=== PATIENT | male | born 1955 | race Caucasian/White ===

== ENCOUNTER 2018-01-22 02:00 | Outpatient (CLI) | payer OTHER, SELFPAY ==
[2018-01-22 11:58] LABS: ALT 42 U/L (12-78); AST 19 U/L (15-37); Albumin 3.8 g/dL (3.4-5.0); Alkaline Phosphatase 82 U/L (46-116); Bilirubin, Total 0.6 mg/dL (0.2-1.0); Cholesterol 178 mg/dL (50-200); HDL Cholesterol 43 mg/dL (40-60); LDL CHOLESTEROL 109 mg/dL (<100); Total Protein 6.9 g/dL (6.4-8.2); Triglyceride 135 mg/dL (30-150)
[2018-01-22 12:12] LABS: Amylase 50 U/L (25-115); Bilirubin, Direct 0.11 mg/dL (0.00-0.20); Lipase 304 U/L (73-393)
== END 2018-01-22 02:20 ==
PROVIDERS: PCP Emergency Medicine; Visit Provider Emergency Medicine
DX: K86.1 Other chronic pancreatitis (principal)
CPT/HCPCS: 36415; 80061; 80076; 83690; 83721; 82150

== ENCOUNTER 2018-01-30 12:26 | Outpatient (REF) | payer OTHER, SELFPAY ==
[2018-01-30 15:05] LABS: Bilirubin Negative (Negative); Blood Negative (Negative); Clarity Clear; Glucose Negative (Negative); Ketones Negative (Negative); Leukocyte Esterase Negative (Negative); Nitrite Negative (Negative); Urobilinogen 0.2 EU/dL (Up TO 0.2)
== END 2018-01-30 12:46 ==
LOC: LBN 12:26
PROVIDERS: PCP Emergency Medicine; Visit Provider Emergency Medicine
DX: Z80.52 Family history of malignant neoplasm of bladder (principal)
CPT/HCPCS: 81003

== ENCOUNTER 2018-09-11 01:44 | Outpatient (CLI) | payer MEDICARE, OTHER, SELFPAY ==
[2018-09-11 10:57] LABS: Abs Immature Grans 0.01 k/cumm (0.0-0.09); Absolute Basophil Count 0.02 k/cumm (0.0-0.2); Absolute Eosinophil Count 0.06 k/cumm (0.0-0.7); Absolute Monocyte Count 0.37 k/cumm (0.11-0.7); Absolute Neutrophil Count 2.87 k/cumm (1.2-6.7); Basophils % 0.4; Eosinophils % 1.3; HCT 44.7 % (40.0-50.0); HGB 14.9 g/dL (13.5-17.5); Immature Grans % 0.2; Lymphocytes % 28.1; Mean Corp. HGB Concentration 33.3 g/dL (32.0-36.0); Mean Corpuscular Hemoglobin 29.4 pg (27.0-33.0); Mean Corpuscular Volume 88.3 fL (80-95); Mean Platelet Volume 10.2 fL (8.0-11.0); Platelet Count 211 x1000/uL (130-400); RBC 5.06 m/cumm (4.50-6.00); RBC Distribution Width 13.1 % (11.8-14.1); White Blood Cell Count 4.63 k/cumm (4.4-10.8)
[2018-09-11 11:24] LABS: ALT 28 U/L (12-78); AST 16 U/L (15-37); Albumin 4.2 g/dL (3.4-5.0); Alkaline Phosphatase 74 U/L (46-116); BUN 23 mg/dL (7-18); Bilirubin, Total 0.5 mg/dL (0.2-1.0); C-Reactive Protein 0.09 mg/dL (0.0-0.3); CREATININE 1.07 mg/dL (0.70-1.30); Calcium 9.1 mg/dL (8.5-10.1); Chloride 105 mmol/L (98-107); Glucose 104 mg/dL (70-100); Potassium 5.3 mmol/L (3.5-5.1); Sodium 141 mmol/L (136-145); Total Protein 7.3 g/dL (6.4-8.2)
== END 2018-09-11 02:04 ==
PROVIDERS: PCP Emergency Medicine; Visit Provider Emergency Medicine
DX: R51 Headache (principal)
CPT/HCPCS: 36415; 80053; 85025; 86140

== ENCOUNTER 2018-09-16 00:33 | Outpatient (CLI) | payer MEDICARE, OTHER, SELFPAY ==
--- NOTE | 2018-09-16 13:05 | DI.CT_ITS ---
SYMPTOM/DIAGNOSIS: HEADACHE, R51 NONCONTRAST HEAD CT: There are no prior comparison exams. No intracranial hemorrhage, mass or infarct is seen. The ventricles are normal in size. There is no significant atrophy. The orbits, sinuses and mastoid air cells are unremarkable. IMPRESSION: Negative head CT.
== END 2018-09-16 00:53 ==
PROVIDERS: PCP Emergency Medicine; Visit Provider Emergency Medicine
DX: R51 Headache (principal)
CPT/HCPCS: 70450

== ENCOUNTER 2019-02-05 07:00 | Outpatient (CLI) | payer MEDICARE, OTHER, SELFPAY ==
[2019-02-05 12:36] LABS: Abs Immature Grans 0.03 k/cumm (0.0-0.09); Absolute Basophil Count 0.03 k/cumm (0.0-0.2); Absolute Eosinophil Count 0.08 k/cumm (0.0-0.7); Absolute Lymphocyte Count 1.25 k/cumm (1.2-3.4); Absolute Monocyte Count 0.43 k/cumm (0.11-0.7); Absolute Neutrophil Count 2.25 k/cumm (1.2-6.7); Basophils % 0.7; HCT 44.6 % (40.0-50.0); HGB 14.5 g/dL (13.5-17.5); Immature Grans % 0.7; Lymphocytes % 30.7; Mean Corp. HGB Concentration 32.5 g/dL (32.0-36.0); Mean Corpuscular Hemoglobin 28.9 pg (27.0-33.0); Mean Corpuscular Volume 88.8 fL (80-95); Mean Platelet Volume 9.8 fL (8.0-11.0); Monocytes % 10.6; Neutrophils % 55.3; Platelet Count 221 x1000/uL (130-400); RBC 5.02 m/cumm (4.50-6.00); RBC Distribution Width 13.4 % (11.8-14.1); White Blood Cell Count 4.07 k/cumm (4.4-10.8)
[2019-02-05 13:14] LABS: ALT 27 U/L (16-63); AST 15 U/L (15-37); Albumin 4.2 g/dL (3.4-5.0); Alkaline Phosphatase 77 U/L (46-116); Anion Gap 7.2 mmol/L (3-11); BUN 22 mg/dL (7-18); Bilirubin, Total 0.7 mg/dL (0.2-1.0); CO2 29.8 mmol/L (21.0-32.0); CREATININE 1.12 mg/dL (0.70-1.30); Calcium 9.2 mg/dL (8.5-10.1); Chloride 105 mmol/L (98-107); Glucose 100 mg/dL (70-100); Potassium 4.4 mmol/L (3.5-5.1); Sodium 142 mmol/L (136-145); Total Protein 7.2 g/dL (6.4-8.2); Vitamin B12 594 pg/mL (193-986)
[2019-02-05 13:23] LABS: C-Reactive Protein 0.06 mg/dL (0.0-0.3)
[2019-02-05 13:39] LABS: ESR 4 mm/hr (1-20)
[2019-02-06 08:58] LABS: PSA, Screening 1.5 ng/ml (0-4.5)
== END 2019-02-05 07:20 ==
PROVIDERS: PCP Emergency Medicine; Visit Provider Emergency Medicine
DX: R53.83 Other fatigue (principal); Z12.5 Encounter for screening for malignant neoplasm of prostate; A07.1 Giardiasis [lambliasis]
CPT/HCPCS: 36415; 80053; 84153; 85652; 82607; 85025; 86140

== ENCOUNTER 2019-11-19 00:46 | Outpatient (CLI) | payer MEDICARE, OTHER, SELFPAY ==
--- NOTE | 2019-11-19 10:30 | DI.RAD_ITS ---
EXAM: XR LUMBAR SPINE COMPLETE CLINICAL HISTORY: Low back pain,M54.5 TECHNIQUE: COMPARISON: No exams were available for comparison FINDINGS: Five views were obtained. There is disc space narrowing at the L 3 4 level. Otherwise intervertebra l disc spaces appear fairly well maintained. There is no evidence of spondylolysis or spondylolisthe sis. The SI joints appear intact. There are moderate hypertrophic degenerative changes involving the vertebral endplates of the mid lum bar region, mild hypertrophic degenerative changes of the facet joints of the lower lumbar spine also noted. IMPRESSION: [id number] degenerative changes as described above. No evidence of fracture.
== END 2019-11-19 01:06 ==
PROVIDERS: PCP Emergency Medicine; Visit Provider Emergency Medicine
DX: M54.5 Low back pain (principal); M51.36 Other intervertebral disc degeneration, lumbar region
CPT/HCPCS: 72110

== ENCOUNTER 2021-01-13 02:42 | Outpatient (CLI) | payer MEDICARE, OTHER, SELFPAY ==
[2021-01-13 12:20] LABS: Abs Immature Grans 0.04 10^3/uL (0.0-0.06); Absolute Basophil Count 0.04 10^3/uL (0.0-0.2); Absolute Eosinophil Count 0.07 10^3/uL (0.0-0.7); Absolute Lymphocyte Count 1.57 10^3/uL (1.2-3.4); Absolute Monocyte Count 0.43 10^3/uL (0.1-0.8); Absolute Neutrophil Count 2.22 10^3/uL (1.2-6.7); Basophils % 0.9; Eosinophils % 1.6; HCT 42.7 % (40.0-50.0); HGB 13.7 g/dL (13.5-17.5); Immature Grans % 0.9; Lymphocytes % 35.9; MCH 28.9 pg (27.0-33.0); MCHC 32.1 % (32.0-36.0); MCV 90.1 fL (80-95); MPV 9.6 fL (8.0-11.0); Monocytes % 9.8; Neutrophils % 50.9; Nucleated RBC 0 %; Platelet Count 229 10^3/uL (130-400); RBC 4.74 10^6/uL (4.36-5.78); RDW 12.7 % (11.8-14.1); RDW-SD 42.3 fL; WBC 4.37 10^3/uL (4.4-10.8)
[2021-01-13 12:38] LABS: ALT 38 U/L (16-63); AST 16 U/L (15-37); Albumin 4.2 g/dL (3.4-5.0); Alkaline Phosphatase 68 U/L (46-116); Amylase 54 U/L (25-115); Anion Gap 7.1 mmol/L (3-11); BUN 19 mg/dL (7-18); Bilirubin, Total 0.9 mg/dL (0.2-1.0); CO2 27.9 mmol/L (21.0-32.0); CREATININE 1.2 mg/dL (0.70-1.30); Calcium 9.1 mg/dL (8.5-10.1); Chloride 106 mmol/L (98-107); Glucose 96 mg/dL (74-106); Lipase 301 U/L (73-393); Potassium 4.3 mmol/L (3.5-5.1); Sodium 141 mmol/L (136-145)
== END 2021-01-13 02:43 | disposition home or self-care (01) ==
LOC: LOS 02:42
PROVIDERS: PCP Emergency Medicine; Visit Provider Emergency Medicine
DX: R10.9 Unspecified abdominal pain (principal); R42 Dizziness and giddiness
CPT/HCPCS: 36415; 80053; 83690; 82150; 85025

== ENCOUNTER 2021-02-10 02:02 | Outpatient (CLI) | payer MEDICARE, OTHER, SELFPAY ==
--- NOTE | 2021-02-10 06:15 | DI.US_ITS ---
Exam(s) US ABDOMEN EXAM: US ABDOMEN CLINICAL HISTORY: abd pain,EPIGASTRIC PAIN,R10.13,R10.9 TECHNIQUE: Ultrasound abdomen performed using standard protocol. COMPARISON: CT ABD PELVIS WITH CONTRAST from 06/05/2017 CT ABD PELVIS WITH CONTRAST from 06/05/2017 FINDINGS: ABDOMINAL AORTA AND IVC: Visualized portions normal caliber. PANCREAS: Normal where visualized. LIVER: There is increased echogenicity of the liver consistent with fatty infiltration. The liver me asures 14 cm in length. Hepatopedal flow in the Portal Vein. GALLBLADDER: No evidence of cholelithiasis. No evidence of wall thickening. No pericholecystic fluid identified. BILIARY SYSTEM: Common bile duct measures < 7 mm. No intrahepatic biliary ductal dilation. TORREZ'S SIGN: Negative. KIDNEYS: Kidneys are symmetric in size. No evidence of renal calculi. No evidence of hydronephrosis. There is a stable 2 cm simple cyst in the right kidney. SPLEEN: Not enlarged. ASCITES: None seen. IMPRESSION: Fatty infiltration of the liver. DATA REPOSITORY:
== END 2021-02-10 02:22 ==
PROVIDERS: PCP Emergency Medicine; Visit Provider Emergency Medicine
DX: R10.13 Epigastric pain (principal); R10.9 Unspecified abdominal pain; K76.0 Fatty (change of) liver, not elsewhere classified
CPT/HCPCS: 76700

== ENCOUNTER → 2021-09-06 00:23 | Outpatient (CLI) | payer MEDICARE, SELFPAY ==
--- NOTE | 2021-09-06 09:00 | ETT_ITS ---
APPROVED REPORT Exam: Exercise Treadmill Patient Location: Out-Patient Room/Bed: Stress Nurse: Shira Hartman RN Ordering Provider:NEIDA BROWNE, Contact Number: [phone] BMI: 29.28 Baseline Rhythm: Sinus Rhythm Indications: exertional dyspnea Medical History Medical History: Polymyalgia Rheumatica, HLD Cardiac Medications: Omeprazole Allergies: NKA Cardiac Risk Factors: Family history, former smoker, HLD Previous Cardiac Procedures: None Pretest Chest Pain Characteristics: None Exercise History: Indeterminate Physical Disabilities: None Lung Sounds: clear Heart Sounds: regular Stress Test Details Test: Exercise stress testing was performed using a Topher protocol. Rest Stress HR Resting HR Supine: 61 bpm Max Heart Rate (APMHR): 152 bpm Resting HR Standin bpm Target HR (85% APMHR): 129 bpm Max HR Achieved: 162 bpm % of APMHR: 106 Recovery HR: 78 bpm HR response to stress: Normal HR response to stress BP Resting BP Supine: 120/78 mmHg Resting BP Standin/70 mmHg Max BP: 170/80 mmHg Recovery BP: 128/74 mmHg BP response to stress: Normal blood pressure response to stress. ECG Resting ECG: Sinus Rhythm Ectopy: None Stress ECG: Sinus Tachycardia ST Change: None Arrhythmia: None Recovery ECG: Sinus Rhythm Recovery ST Change: None Recovery Arrhythmia: Rare PVC Clinical Reason for Termination: Fatigue Stress Symptoms: Dyspnea, General Fatigue Exercise duration: 10 min47 sec Highest Stage Reached: Stage 4: 4.2 mph at 16% grade. Exercise capacity: 13.08 METs Angina Score: None Baltazar Treadmill Score: 9.8 Rate Pressure Product: 33385 Stress ECG Conclusion 1. The resting electrocardiogram showed right axis deviation, poor R wave progression 2. Patient exercised on the Topher protocol and completed a workload of 13.08 METS, stopping due to fa tigue 3. Normal heart rate and blood pressure response to exercise. Patient achieved greater than 100% of predicted heart rate for age 4. There was no electrocardiographic evidence of myocardial ischemia 5. Rare PVCs were seen Baltazar Treadmill Score is 9.8 which is Low risk. Stress Test Summary STAGE Time (mins) Speed (mph) Grade (%) HR BP SYMPTOMS METS Supine 61 120/78 SP02 96% Standing 70 128/70 SP02 97% 1 3 1.7 10 96 122/70 SP02 93% 4.6 2 6 2.5 12 120 140/70 SP02 95% 7 3 9 3.4 14 130 SP02 95% 10.2 4 12 4.2 16 156 12.9 1 min recovery 132 162/74 3 min recovery 86 170/80 6 min recovery 78 128/74 SP02 98%
== END ==
PROVIDERS: PCP Nurse Practitioner Family; Visit Provider Emergency Medicine
DX: R06.00 Dyspnea, unspecified (principal)
CPT/HCPCS: 93016; 93018; 93017

== ENCOUNTER 2021-09-06 02:14 | Outpatient (CLI) | payer MEDICARE, SELFPAY ==
[2021-09-06 08:33] LABS: Abs Immature Grans 0.02 10^3/uL (0.0-0.06); Absolute Basophil Count 0.05 10^3/uL (0.0-0.2); Absolute Eosinophil Count 0.09 10^3/uL (0.0-0.7); Absolute Lymphocyte Count 1.55 10^3/uL (1.2-3.4); Absolute Monocyte Count 0.43 10^3/uL (0.1-0.8); Absolute Neutrophil Count 2.46 10^3/uL (1.2-6.7); Basophils % 1.1; HCT 43.7 % (40.0-50.0); HGB 14.3 g/dL (13.5-17.5); Immature Grans % 0.4; Lymphocytes % 33.7; MCH 29.9 pg (27.0-33.0); MCHC 32.7 % (32.0-36.0); MCV 91 fL (80-95); MPV 9.2 fL (8.0-11.0); Monocytes % 9.3; Neutrophils % 53.5; Platelet Count 195 10^3/uL (130-400); RBC 4.79 10^6/uL (4.36-5.78); RDW 12.5 % (11.8-14.1); RDW-SD 42.1 fL
[2021-09-06 09:44] LABS: ALT 30 U/L (16-63); AST 16 U/L (15-37); Albumin 4.1 g/dL (3.4-5.0); Alkaline Phosphatase 81 U/L (46-116); Anion Gap 6.1 mmol/L (3-11); BUN 21 mg/dL (7-18); Bilirubin, Total 0.6 mg/dL (0.2-1.0); C-Reactive Protein 0.07 mg/dL (0.0-0.3); CO2 28.9 mmol/L (21.0-32.0); CREATININE 1.2 mg/dL (0.70-1.30); Calcium 8.6 mg/dL (8.5-10.1); Chloride 107 mmol/L (98-107); Glucose 105 mg/dL (74-106); Potassium 4.6 mmol/L (3.5-5.1); Sodium 142 mmol/L (136-145); Total Protein 7.1 g/dL (6.4-8.2)
[2021-09-07 10:52] LABS: Lyme Ab w Rflx to Lyme Confirm Negative (Negative)
== END 2021-09-06 02:15 | disposition home or self-care (01) ==
LOC: LBO 02:14
PROVIDERS: PCP Nurse Practitioner Family; Visit Provider Emergency Medicine
DX: M25.59 Pain in other specified joint (principal); K29.60 Other gastritis without bleeding
CPT/HCPCS: 36415; 80053; 85025; 86140; 86618

== ENCOUNTER 2021-11-15 02:51 | Outpatient (CLI) | payer MEDICARE, SELFPAY ==
[2021-11-15 12:45] LABS: Calculated LDL 148 mg/dL (<100); Cholesterol 247 mg/dL (<200); HDL Cholesterol 45 mg/dL (40-60); Triglyceride 272 mg/dL (<150)
== END 2021-11-15 02:52 | disposition home or self-care (01) ==
LOC: LOS 02:51
PROVIDERS: PCP Nurse Practitioner Family; Visit Provider Nurse Practitioner Family
DX: E78.5 Hyperlipidemia, unspecified (principal)
CPT/HCPCS: 36415; 80061

== ENCOUNTER 2022-12-13 02:46 | Outpatient (CLI) | payer MEDICARE, SELFPAY ==
[2022-12-13 12:41] LABS: Calculated LDL 118 mg/dL (<100); Cholesterol 190 mg/dL (<200); HDL Cholesterol 50 mg/dL (40-60); Triglyceride 110 mg/dL (<150)
== END 2022-12-13 02:47 | disposition home or self-care (01) ==
LOC: LOS 02:47
PROVIDERS: PCP Nurse Practitioner Family; Visit Provider Nurse Practitioner Family
DX: E78.5 Hyperlipidemia, unspecified (principal)
CPT/HCPCS: 36415; 80061

== ENCOUNTER → 2023-04-19 13:01 | Outpatient (BNVA) | payer MEDICARE, SELFPAY | PROVIDERS: PCP Nurse Practitioner Family; Referring Provider Nurse Practitioner Family; Visit Provider Physical Therapy Assistant | DX: Z12.11 Encounter for screening for malignant neoplasm of colon (principal); Z86.010 Personal history of colon polyps ==

== ENCOUNTER 2023-06-05 06:50 | Day surgery (SDC) | payer MEDICARE, SELFPAY ==
--- NOTE | 2023-06-04 13:48 | SCONE_ITS ---
Date of service: 06/05/23 Time of Service: 07:30 Assessment and Plan Assessment and plan (1) Polyp of colon: Status: Acute Assessment and plan: 67-year-old man without symptoms due for surveillance colonoscopy. Plan: Surveillance colonoscopy History of Present Illness Narrative: 67-year-old man is due for surveillance colonoscopy. He has a history of tubular adenomas. No family history of colon cancer. No symptoms. PFSH All Active Problems COVID-19 (Acute) Onset-02/13/22 Fully vaccinated, two boosters Joint pain (Acute) Abdominal pain (Acute) Low back pain (Acute) Headache (Acute) Rarely now. Tubular adenoma (Acute) 12/21/11 DR. ACE; AT LEAST 2 TUBULAR ADENOMAS 05/23/17 DR. ZEPEDA X1 Rectal hemorrhage (Acute 04/05/00) Polyp of colon (Acute 12/21/11) Polymyalgia rheumatica (Acute 04/05/06) myalgias and arthralgias-presumed PMR per [facility] Rheum. Other vitamin B12 deficiency anemias (Acute) Other specified gastritis without mention of hemorrhage (Acute 04/05/96) per EGD Hyperlipidemia (Acute) Giardiasis (Acute 09/03/08) Family history of bladder cancer (Chronic) Medical History GERD (gastroesophageal reflux disease) Kidney stone (04/05/05) Idiopathic chronic pancreatitis (08/10/17) Surgical History EGD - MAC (05/23/17) Colonoscopy - MAC (05/23/17) Colonoscopy - MAC (12/18/11) Family History (Updated 02/05/19 @ 12:00 by Jerry Trejo) Mother , age 83 Diabetes Essential hypertension Hyperlipidemia Bladder cancer Father , AGE 87 Heart disease Hyperlipidemia Bladder cancer Sister Diabetes Essential hypertension Brother Hyperlipidemia Brother Hyperlipidemia Maternal Grandfather , AGE 91 No problems noted. Paternal Grandfather Heart disease Maternal Grandmother Cancer Sister Essential hypertension Brother No problems noted. Brother No problems noted. Brother No problems noted. Son No problems noted. Social History (Updated 04/20/23 @ 08:58 by RAHUL Gallego Smoking/Tobacco Use Status: Former Tobacco Use tobacco type: cigarettes Quit Date: 05/07/73 Smokeless tobacco user: chewing tobacco Second Hand Exposure: Yes Smoking risk assessment performed?: Yes Alcohol Intake: current Alcohol Intake frequency: 0-2 drinks per day Alcohol type: beer, wine and hard liquor Drug use: Never Substance use type: does not use Caregiver/Support person: Yes Household members: significant other Housing: house Communication Needs: Hard of Hearing and Corrective Lenses Do you need help understanding health information?: Rarely Pets and animals: Yes Pets and animals: dog(s) Sexually active: Yes Do you think of yourself as: straight/heterosexual Current gender identity: male What is your relationship status?: How often do you talk on the phone with friends or family?: three or more times per week How often do you get together with friends or relatives?: once per week How often do you attend orthodoxy or nondenominational services?: decline to answer Do you belong to any clubs or organized social groups?: yes Panel score (0-1 are the most socially isolated patients): 3 What type of physical activity do you participate in: walking Duration: 45-60 minutes/day Frequency: 5-6 times per week Margaux/Lutheran: No preference Special margaux needs: No Seatbelt use: always Drive intox or ride w/intox emergency detail driver: No Do you feel safe at home: Yes Do you feel safe in your relationship?: Yes Exam Narrative Exam Narrative: General: Nontoxic, comfortable and interactive Neuro: Alert and oriented x 3 Psych: Good mood and affect, good insight and understanding into his conditions Chest: Nonlabored breathing Heart: Regular
[2023-06-05 07:11] VITALS: BP 138/83; PULSE 73; RESP 16; TEMP 36.4; O2SAT 98
[2023-06-05] MEDS: Lactated Ringers 1,000 ML 80 ML IV (07:20)
--- NOTE | 2023-06-05 07:36 | W.ANESPRE ---
General Info Date of Service Date Performed: 06/05/23 Height: 5 ft 5 in Weight: 78.5 kg Body Mass Index (BMI): 28.8 Surgical Procedure: Operation Date: 06/05/23 08:35 Proposed Procedure Side Surgeon usha Vega MD Meds Allergies and Home Medications Allergies Allergy/AdvReac Type Severity Reaction Status Date / Time No Known Allergies Allergy Verified 06/05/23 07:19 Home Medication Medication Instructions Recorded cyanocobalamin (vitamin B-12) 1,000 mcg PO DAILY 10/14/12 1,000 mcg tablet,extended release (Vitamin B-12 ER) ginkgo biloba extract-Panax 2 cap PO DAILY 09/10/18 ginseng root extract 60 mg-100 mg capsule triamcinolone acetonide 0.1 % 1 applic topical BID #30 grams 02/05/19 topical cream atorvastatin 10 mg tablet 10 mg PO QHS #90 tabs 01/15/23 omeprazole 20 mg capsule,delayed 20 mg PO DAILY #90 tab-caps 01/15/23 release bisacodyl 5 mg tablet,delayed 5 mg PO ONCE #4 tabs 04/19/23 release (Dulcolax (bisacodyl)) polyethylene glycol 3350 17 17 g PO ONCE #238 grams 04/19/23 gram/dose oral powder riboflavin 200 mg-magnesium tab PO DAILY 04/19/23 citrate,oxide 180 mg-feverfew 50 mg tablet (MigreLief) turmeric root extract 500 mg 500 mg PO DAILY 04/19/23 capsule Current Visit Medications: Current Medications Generic Name Dose Route Start Last Admin Trade Name Freq PRN Reason Stop Dose Admin Ringer's Solution 1,000 mls @ 80 mls/hr 06/05/23 06:00 06/05/23 07:20 IV 07/04/23 23:59 80 mls/hr INFUSION ZUNILDA Administration IV Miscellaneous Supplies 1 each 06/05/23 06:00 Iv Access IV 07/04/23 23:59 DIRECTED ZUNILDA Sodium Chloride 0 ml 06/05/23 06:00 Normal Saline Flush 10 Ml Syr IV 07/04/23 23:59 PRN PRN Sodium Chloride 0 ml 06/05/23 06:00 Normal Saline 10 Ml Vial IJ 07/04/23 23:59 DIRECTED PRN Sterile Water 0 ml 06/05/23 06:00 Water,Injection,Sterile 10 Ml Vial IJ 07/04/23 23:59 DIRECTED PRN PFS Active Problems Active Problems: Problem Status Onset Code COVID-19 U07.1 Joint pain M25.50 Abdominal pain R10.9 Low back pain M54.5 Headache R51 Tubular adenoma D36.9 Rectal hemorrhage 04/05/00 K62.5 Polyp of colon 12/21/11 K63.5 Polymyalgia rheumatica 04/05/06 M35.3 Other vitamin B12 deficiency anemias D51.8 Other specified gastritis without mention of hemorrhage 04/05/96 K29.60 Hyperlipidemia E78.5 Giardiasis 09/03/08 A07.1 Family history of bladder cancer Z80.52 Medical History Medical History GERD (gastroesophageal reflux disease) Kidney stone (04/05/05) Idiopathic chronic pancreatitis (08/10/17) Surgical History Surgical History EGD - MAC (05/23/17) Colonoscopy - MAC (05/23/17) Colonoscopy - MAC (12/18/11) Tobacco Smoking/Tobacco Use Status: Former Tobacco Use Smokeless tobacco user: chewing tobacco Passive smoking exposure: Yes Second hand exposure: Yes Alcohol Alcohol Intake: current Alcohol intake frequency: 0-2 drinks per day Alcohol type: beer, wine and hard liquor Substance Use Substance use: Never Substance use type: does not use Vital Signs and Lab Results Vital Signs Most Recent Vital Signs in EMR: Most Recent Vital Signs Temp Pulse Resp BP Pulse Ox 36.4 C L 73 16 138/83 98 06/05/23 07:11 06/05/23 07:11 06/05/23 07:11 06/05/23 07:11 06/05/23 07:11 Lab Results Blood Type / Crossmatch: No Data to Display Complete Blood Count: No Data to Display Complete Metabolic Panel: No Data to Display Liver Function Panel: No Data to Display Coagulation Panel: No Data to Display Cardiac Panel: No Data to Display Arterial Blood Gas: No Data to Display Venous Blood Gas: No Data to Display Pancreas Panel: No Data to Display Thyroid Panel: No Data to Display Infectious Disease: No Data to Display Blood Cultures: No Data to Display Toxicology Panel: No Data to Display Anesthesia Assessment and Plan Anesthesia History Personal History: No History of Anesthesia Complications Family History: No Family History of Anesthesia Complications Exercise Tolerance Exercise Tolerance: Metabolic Equivalents>4 Pertinent Negatives Pertinent Negatives: No Symptoms of GERD Cardiac & Pulmonary Exam Cardiac Exam: Normal S1/S2 Heart Sounds Pulmonary Exam: Clear Bilateral Breath Sounds Implantable Cardiac Device Does patient have a Pacemaker or an ICD?: No Airway Exam Known Difficult Airway: No Mallampati Class: 2 Mouth Opening: Normal (> 3cm) Thyromental Distance: Greater than 3 cm Neck Range of Motion: Full ROM Neck Circumference: Normal Teeth Condition: Normal Dentition ASA Classification ASA Score: ASA 2 Emergency Case?: No NPO Status NPO Status: NPO Clears >2 hours, Solids >8 hours Anesthesia Plan Resuscitation Status: Full Code Anesthesia Technique: General Anesthesia Airway Planned: Natural Airway Monitors Used: Standard Monitors
[2023-06-05 07:37] VITALS: BMI 28.8
--- NOTE | 2023-06-05 08:06 | BOWEL_PTH ---
PATIENT: Shankar Pina LOC: [facility] U#:[id number] AGE/SX: 67/M ROOM: RE06/05/[address]: Jose Vega : 1955 BED: DIS: 06/05/2023 SPEC #: [id number] RECD: 06/05/23 11:27 STATUS: ADAN RE #: [id number] JENNIE: 06/05/23 08:[address]: Jose Vega DEPT: Surgical Specimen RECD BY: Jennifer Schmidt ENTERED: 06/05/23 11:29 SP TYPE: Bowel OTHR DR: Edgar Comer, RISA Tissues: 1 - BIOPSY BOWEL Procedures: GROSS AND MICRO LEVEL 4 Comments: [id number]
[2023-06-05 08:16] VITALS: BP 104/70; PULSE 64; RESP 16; TEMP 36.5; O2SAT 93
--- NOTE | 2023-06-05 08:19 | W.ANESPOSTOP ---
Postoperative Evaluation Date, Time and Location Date Performed: 06/05/23 Time Performed: 08:19 Patient Location: Day Surgery Unit Vital Signs Most Recent Imported Vital Signs: Most Recent Vital Signs Temp Pulse Resp BP Pulse Ox 36.5 C 64 16 104/70 93 06/05/23 08:16 06/05/23 08:16 06/05/23 08:16 06/05/23 08:16 06/05/23 08:16 Pain Score Most Recent Pain Score: Most Recent Pain Score Pain Level 0 06/05/23 08:16 Assessment Mental Status: Awake (Alert & Oriented to Patient Baseline) Airway and Respiratory Function: Patent airway with normal (patient baseline) respiratory exam Cardiovascular Function: Hemodynamically Stable Hydration Status: Adequately Hydrated Nausea & Vomiting: No Nausea or Vomiting Pain: Pt. Denies Any Pain Peripheral Nerve Block: Patient did not receive a nerve block
--- NOTE | 2023-06-05 08:31 | ROE_ITS ---
Date of service: 06/05/23 Time of Service: 08:10 Operative Note Operative Note Refer to Anesthesia Record Procedure Description: PROCEDURES PERFORMED: 1. Colonoscopy with cold forceps polypectomy PREOPERATIVE DIAGNOSIS: Surveillance colonoscopy POSTOPERATIVE DIAGNOSIS: Colon polyps, grade 1 internal hemorrhoids, minimal/mild sigmoid diverticular disease SURGEON: Miguel Vega MD INDICATION for procedure: The patient is a 67-year-old man due for surveillance colonoscopy. He has no seizures. Prior colonoscopies had some small adenomatous polyps removed. FINDINGS: The terminal ileum was normal. A small polyp, 2-3 mm in size was removed from the transverse colon. A couple of scattered diverticuli are noted in the sigmoid colon only. Grade 1 internal hemorrhoids. SURVEILLANCE interval/FOLLOW-UP: 3 - 10 years. If sessile serrate or villous histology, then in 3 years (not suspected). Otherwise, 7-10 year followup is acceptable. SPECIMENS: yes EBL: Minimal COMPLICATIONS: None QUALITY of prep: Excellent Procedure in detail: The patient gave written consent and was in agreement with the indications, the potential risks as well as the benefits of the procedure. They taken to the endoscopy suite and laid in the left lateral decubitus position. A timeout was performed and anesthesia was administered which was tolerated well. I started the procedure. Digital rectal and visual examination was performed and grossly within normal limits. A well-lubricated flexible colonoscope was then introduced and passed without any notable difficulty all the way to the cecum identified by the ile ocecal valve and the appendiceal orifice. The terminal ileum was intubated and looked normal. The scope was then slowly withdrawn with the above-noted findings. The patient tolerated the procedure well and was taken to the PACU in hemodynamically stable condition.
--- NOTE | 2023-06-05 08:31 | W.PM.DSUDISC ---
Date of service: 06/05/23 Time of Service: 08:31 Discharge Plan Disposition Patient Disposition: Home Condition: Good Discharge Details Attending Provider: Jose Vega Primary Care Provider: Edgar Comer Home Meds and New Rx's Prescriptions: No Action triamcinolone acetonide 0.1 % cream 1 applic TP BID Qty: 30 4RF Hold Instructions: Pt Stopped/Never Started ginkgo biloba-Panax ginseng rt 60-100 mg capsule 2 cap PO DAILY turmeric root extract 500 mg capsule 500 mg PO DAILY MigreLief 200-180-50 mg tablet PO DAILY bisacodyl [Dulcolax (bisacodyl)] 5 mg tablet,delayed release (DR/EC) 5 mg PO ONCE Qty: 4 0RF Rx Instructions: Take per colonoscopy instructions provided by ordering providers office polyethylene glycol 3350 17 gram/dose powder 17 g PO ONCE Qty: 238 0RF Rx Instructions: Take per colonoscopy instructions provided by ordering providers office cyanocobalamin (vitamin B-12) [Vitamin B-12] 1,000 MCG tablet extended release 1,000 mcg PO DAILY atorvastatin 10 mg tablet 10 mg PO QHS Qty: 90 3RF omeprazole 20 mg capsule,delayed release(DR/EC) 20 mg PO DAILY Qty: 90 3RF Discharge Instructions Additional Instructions: FINDINGS: A small polyp was found in your colon again today. It was removed. It is nothing to worry about. You should repeat another colonoscopy in 7 to 10 years. Mild hemorrhoid disease was seen today. This is extremely common, benign and nothing needs to be done about it. Some extremely minimal/mild diverticular disease was seen today. This is also extremely common, benign and nothing needs to be done about it. Stand Alone Forms: Colonoscopy Post Instructions Activity:: Activity as Tolerated Diet:: As Tolerated DS: Diagnosis Discharge Diagnosis (1) Polyp of colon: Status: Acute
[2023-06-05 08:45] VITALS: BP 116/77; PULSE 62; RESP 16; TEMP 36.4; O2SAT 96
== END 2023-06-05 09:00 | disposition home or self-care (01) ==
PROVIDERS: PCP Nurse Practitioner Family; Visit Provider Student in an Organized Health Care Education/Training Program
PROC: 0DJD8ZZ Inspection of Lower Intestinal Tract, Via Natural or Artificial Opening Endoscopic (ICD-10-PCS; CPT 45378; principal; 2023-06-05 08:30)
DX: Z12.11 Encounter for screening for malignant neoplasm of colon (principal); D12.3 Benign neoplasm of transverse colon; K64.0 First degree hemorrhoids; Z86.010 Personal history of colon polyps; M35.3 Polymyalgia rheumatica; K57.30 Diverticulosis of large intestine without perforation or abscess without bleeding
CPT/HCPCS: 45380; 00123; 88305; J2001; J2704

== ENCOUNTER 2023-12-17 03:33 | Outpatient (CLI) | payer MEDICARE, SELFPAY ==
[2023-12-17 13:12] LABS: Calculated LDL 100 mg/dL (<100); Cholesterol 174 mg/dL (<200); HDL Cholesterol 58 mg/dL (40-60); Triglyceride 80 mg/dL (<150); Vitamin B12 573 pg/mL (193-986)
[2023-12-17 18:38] LABS: PSA, Screening 2.7 ng/mL (<=6.5)
== END 2023-12-17 03:34 | disposition home or self-care (01) ==
LOC: LOS 03:33
PROVIDERS: PCP Nurse Practitioner Family; Visit Provider Nurse Practitioner Family
DX: D51.8 Other vitamin B12 deficiency anemias (principal); Z12.5 Encounter for screening for malignant neoplasm of prostate; Z13.6 Encounter for screening for cardiovascular disorders
CPT/HCPCS: 36415; 80061; 84153; 82607

== ENCOUNTER 2024-03-20 12:38 | Outpatient (CLI) | payer MEDICARE, SELFPAY ==
[2024-03-20 09:49] LABS: Abs Immature Grans 0.03 10^3/uL (0.0-0.06); Absolute Basophil Count 0.04 10^3/uL (0.0-0.2); Absolute Eosinophil Count 0.08 10^3/uL (0.0-0.7); Absolute Lymphocyte Count 1.08 10^3/uL (1.2-3.4); Absolute Monocyte Count 0.33 10^3/uL (0.1-0.8); Absolute Neutrophil Count 2.72 10^3/uL (1.2-6.7); Basophils % 0.9 %; Eosinophils % 1.9 %; HCT 44.6 % (40.0-50.0); HGB 14.7 g/dL (13.5-17.5); Immature Grans % 0.7 %; Lymphocytes % 25.2 %; MCH 29.7 pg (27.0-33.0); MCV 90 fL (80-95); MPV 9.7 fL (8.0-11.0); Monocytes % 7.7 %; Neutrophils % 63.6 %; Platelet Count 183 10^3/uL (130-400); RBC 4.95 10^6/uL (4.36-5.78); RDW 12.2 % (11.8-14.1); RDW-SD 40.2 fL; WBC 4.28 10^3/uL (4.4-10.8)
[2024-03-20 11:03] LABS: ALT 27 U/L (16-63); AST 15 U/L (15-37); Alkaline Phosphatase 81 U/L (46-116); Anion Gap 8.1 mmol/L (3-11); BUN 19 mg/dL (7-18); Bilirubin, Total 0.79 mg/dL (0.2-1.0); CO2 28.9 mmol/L (21.0-32.0); CREATININE 1.3 mg/dL (0.70-1.30); Calcium 9.5 mg/dL (8.5-10.1); Chloride 108 mmol/L (98-107); Glucose 81 mg/dL (74-106); Potassium 4.2 mmol/L (3.5-5.1); Sodium 145 mmol/L (136-145); TSH (W/Ref FT4) 1.42 uIU/mL (0.36-3.74); Total Protein 7.3 g/dL (6.4-8.2)
[2024-03-20 18:29] LABS: PSA, Screening 2.1 ng/mL (<=6.5)
[2024-03-21 12:16] LABS: Lyme Ab w Rflx to Lyme Confirm Negative (Negative)
[2024-03-23 18:37] LABS: Anaplasma phagocytophilum Negative (Negative); B. miyamotoi PCR Negative (Negative); Babesia divergens/MO-1 Negative (Negative); Babesia duncani Negative (Negative); Babesia microti Negative (Negative); Ehrlichia chaffeensis Negative (Negative); Ehrlichia ewingii/canis Negative (Negative); Ehrlichia muris eauclairensis Negative (Negative)
== END 2024-03-20 12:39 | disposition home or self-care (01) ==
LOC: LBO 12:40
PROVIDERS: PCP Nurse Practitioner Family; Visit Provider Nurse Practitioner Family
DX: R11.2 Nausea with vomiting, unspecified (principal); R53.83 Other fatigue; Z12.5 Encounter for screening for malignant neoplasm of prostate
CPT/HCPCS: 36415; 80053; 84153; 87798; 84443; 85025; 86618

== ENCOUNTER 2024-12-16 03:27 | Outpatient (CLI) | payer MEDICARE, SELFPAY ==
[2024-12-16 12:21] LABS: HCT 45.3 % (40.0-50.0); HGB 15.0 g/dL (13.5-17.5); MCH 29.8 pg (27.0-33.0); MCHC 33.1 % (32.0-36.0); MCV 90 fL (80-95); MPV 9.7 fL (8.0-11.0); Platelet Count 207 10^3/uL (130-400); RBC 5.03 10^6/uL (4.36-5.78); RDW 13.0 % (11.8-14.1); RDW-SD 42.8 fL; WBC 4.05 10^3/uL (4.4-10.8)
[2024-12-16 13:49] LABS: Calculated LDL 113 mg/dL (<100); Cholesterol 196 mg/dL (<200); HDL Cholesterol 50 mg/dL (>or=40); TSH (W/Ref FT4) 2.06 uIU/mL (0.36-3.74); Triglyceride 165 mg/dL (<150)
[2024-12-16 21:29] LABS: PSA, Screening 2.5 ng/mL (<=6.5)
== END 2024-12-16 03:28 | disposition home or self-care (01) ==
LOC: LOS 03:27
PROVIDERS: PCP Nurse Practitioner Family; Visit Provider Nurse Practitioner Family
DX: Z12.5 Encounter for screening for malignant neoplasm of prostate (principal); E03.9 Hypothyroidism, unspecified; Z13.6 Encounter for screening for cardiovascular disorders; R10.9 Unspecified abdominal pain
CPT/HCPCS: 36415; 80061; 84153; 85027; 84443

== ENCOUNTER 2025-02-18 10:40 | Outpatient (CLI) | payer MEDICARE, SELFPAY ==
[2025-02-18 14:32] LABS: Abs Immature Grans 0.03 10^3/uL (0.0-0.06); HCT 46.6 % (40.0-50.0); HGB 15.9 g/dL (13.5-17.5); Immature Grans % 0.6 %; MCH 29.8 pg (27.0-33.0); MCHC 34.1 % (32.0-36.0); MCV 87 fL (80-95); MPV 9.6 fL (8.0-11.0); Platelet Count 219 10^3/uL (130-400); RBC 5.33 10^6/uL (4.36-5.78); RDW 12.3 % (11.8-14.1); RDW-SD 39.7 fL; WBC 4.88 10^3/uL (4.4-10.8)
[2025-02-18 14:51] LABS: ALT 21 U/L (16-63); AST 26 U/L (15-37); Albumin 4.1 g/dL (3.4-5.0); Alkaline Phosphatase 91 U/L (46-116); Anion Gap 9.8 mmol/L (3-11); BUN 19 mg/dL (7-18); Bilirubin, Total 0.7 mg/dL (0.2-1.0); CO2 27.2 mmol/L (21.0-32.0); Calcium 9.2 mg/dL (8.5-10.1); Chloride 104 mmol/L (98-107); Estimated GFR 71.77 (mL/min/1.73m2); Ferritin 614 ng/mL (26-388); Glucose 116 mg/dL (74-106); Potassium 4.0 mmol/L (3.5-5.1); Sodium 141 mmol/L (136-145); Total Protein 7.5 g/dL (6.4-8.2); Vitamin B12 753 pg/mL (193-986)
[2025-02-18 16:39] LABS: Iron 97 ug/dL (65-175); Total Iron Binding Capacity 313 ug/dL (250-450)
[2025-02-19 10:05] LABS: Transferrin 248 mg/dL (201-352)
[2025-02-27 13:29] LABS: Testosterone, Free 45.8 pg/mL (30.0-135.0)
== END 2025-02-18 10:41 | disposition home or self-care (01) ==
LOC: LOS 10:41
PROVIDERS: PCP Nurse Practitioner Family; Visit Provider Nurse Practitioner Family
DX: D50.9 Iron deficiency anemia, unspecified (principal); R23.1 Pallor; R23.2 Flushing; E29.1 Testicular hypofunction; D51.8 Other vitamin B12 deficiency anemias
CPT/HCPCS: 36415; 80053; 84402; 84403; 82607; 82728; 83540; 83550; 84466; 85025

== ENCOUNTER 2025-03-04 02:00 | Outpatient (CLI) | payer MEDICARE, SELFPAY ==
[2025-03-04 14:21] LABS: ALT 31 U/L (16-63); AST 17 U/L (15-37); Albumin 4.0 g/dL (3.4-5.0); Alkaline Phosphatase 80 U/L (46-116); Bilirubin, Direct 0.2 mg/dL (0.0-0.2); Bilirubin, Total 0.8 mg/dL (0.2-1.0); Total Protein 7.4 g/dL (6.4-8.2)
[2025-03-04 14:23] LABS: C-Reactive Protein < 0.50 mg/dL (<or=0.5)
[2025-03-04 14:59] LABS: Ferritin 604 ng/mL (26-388)
[2025-03-06 09:08] LABS: Lyme Ab w Rflx to Lyme Confirm Negative (Negative)
[2025-03-08 12:33] LABS: B. miyamotoi PCR Negative (Negative); Babesia divergens/MO-1 Negative (Negative); Ehrlichia muris eauclairensis Negative (Negative)
== END 2025-03-04 02:01 | disposition home or self-care (01) ==
LOC: LOS 02:00
PROVIDERS: PCP Nurse Practitioner Family; Visit Provider Nurse Practitioner Family
DX: R79.89 Other specified abnormal findings of blood chemistry (principal); W57.XXXA Bitten or stung by nonvenomous insect and other nonvenomous arthropods, initial encounter
CPT/HCPCS: 36415; 80076; 87798; 82728; 86140; 86618

== ENCOUNTER → 2025-03-11 10:13 | Outpatient (BNVA) | payer MEDICARE, SELFPAY | PROVIDERS: PCP Nurse Practitioner Family; Referring Provider Nurse Practitioner Family; Visit Provider Surgery | DX: R10.13 Epigastric pain (principal); R11.0 Nausea; K21.9 Gastro-esophageal reflux disease without esophagitis | CPT/HCPCS: 99214 ==

== ENCOUNTER 2025-03-16 07:40 | Day surgery (SDC) | payer MEDICARE, SELFPAY ==
[2025-03-16 07:55] VITALS: BP 120/76; PULSE 65; RESP 16; TEMP 36.1; O2SAT 99
[2025-03-16] MEDS: Lactated Ringers 1,000 ML 80 ML IV (08:09)
--- NOTE | 2025-03-16 08:17 | W.ANESPRE ---
General Info Date of Service Date Performed: 03/16/25 Height: 5 ft 3 in Weight: 76.9 kg Body Mass Index (BMI): 30.0 Surgical Procedure: Operation Date: 03/16/25 09:05 Proposed Procedure Side Surgeon p Gastroscopy Kalyani Corley MD Meds Allergies and Home Medications Allergies Allergy/AdvReac Type Severity Reaction Status Date / Time No Known Allergies Allergy Verified 03/16/25 07:58 Home Medication Medication Instructions Recorded cyanocobalamin (vitamin B-12) 1,000 mcg PO DAILY 10/14/12 1,000 mcg tablet,extended release (Vitamin B-12 ER) riboflavin 200 mg-magnesium 1 tab PO DAILY 04/19/23 citrate,oxide 180 mg-feverfew 50 mg tablet (MigreLief) turmeric root extract 500 mg 500 mg PO DAILY 04/19/23 capsule ginkgo biloba extract-Panax 1 cap PO DAILY 12/03/23 ginseng root extract 60 mg-100 mg capsule ondansetron 4 mg disintegrating 4 mg PO Q8H PRN nausea and 03/19/24 tablet vomiting #60 tabs atorvastatin 10 mg tablet 10 mg PO QHS #90 tabs 02/12/25 B.coag 1 billion 1 packet PO DIRECTED 03/11/25 ggfs-ajpzztjqfucb-peid gum 4 gram oral powder packet (Benefiber Advanced) Current Visit Medications: Current Medications Generic Name Dose Route Start Last Admin Trade Name Freq PRN Reason Stop Dose Admin Ringer's Solution 1,000 mls @ 80 mls/hr 03/16/25 06:00 03/16/25 08:09 IV 03/16/25 23:59 80 mls/hr INFUSION ZUNILDA Administration IV Miscellaneous Supplies 1 each 03/16/25 06:00 Iv Access IV 03/16/25 23:59 DIRECTED ZUNILDA Sodium Chloride 0 ml 03/16/25 06:00 Normal Saline Flush 10 Ml Syr IV 03/16/25 23:59 PRN PRN Sodium Chloride 0 ml 03/16/25 06:00 Normal Saline 10 Ml Vial IJ 03/16/25 23:59 DIRECTED PRN Sterile Water 0 ml 03/16/25 06:00 Water,Injection,Sterile 10 Ml Vial IJ 03/16/25 23:59 DIRECTED PRN PFSH Active Problems Active Problems: Problem Status Onset Code Chronic nausea Acute R11.0 Epigastric pain Acute R10.13 Elevated ferritin Acute R79.89 Nausea & vomiting Acute R11.2 Bilateral knee pain Acute M25.561, M25.562 COVID-19 Acute U07.1 Joint pain Acute M25.50 Abdominal pain Acute R10.9 Low back pain Acute M54.5 Headache Acute R51 Tubular adenoma Acute 06/05/23 D36.9 Rectal hemorrhage Acute 04/05/00 K62.5 Polyp of colon Acute 12/21/11 K63.5 Polymyalgia rheumatica Acute 04/05/06 M35.3 Other vitamin B12 deficiency anemias Acute D51.8 Other specified gastritis without mention of hemorrhage Acute 04/05/96 K29.60 Hyperlipidemia Acute E78.5 Giardiasis Acute 09/03/08 A07.1 Family history of bladder cancer Chronic Z80.52 Medical History Medical History GERD (gastroesophageal reflux disease) Kidney stone (04/05/05) Idiopathic chronic pancreatitis (08/10/17) Surgical History Surgical History EGD - MAC (05/23/17) Colonoscopy - MAC (05/2023) biopsies Colonoscopy - MAC (12/18/11) Tobacco Smoking/Tobacco Use Status: Former Tobacco Use Smokeless tobacco user: chewing tobacco and dissolvable tobacco Passive smoking exposure: Yes Second hand exposure: Yes Alcohol Alcohol Intake: current Alcohol intake frequency: a few times a month Alcohol type: beer, wine and hard liquor Substance Use Substance use: Never Substance use type: does not use Vital Signs and Lab Results Vital Signs Most Recent Vital Signs in EMR: Most Recent Vital Signs Temp Pulse Resp BP Pulse Ox 36.1 C L 65 16 120/76 99 03/16/25 07:55 03/16/25 07:55 03/16/25 07:55 03/16/25 07:55 03/16/25 07:55 Lab Results Complete Blood Count: WBC, (4.4-10.8) 4.88 10^3/uL 02/18/25, 10:55 RBC, (4.36-5.78) 5.33 10^6/uL 02/18/25, 10:55 Hgb, (13.5-17.5) 15.9 g/dL 02/18/25, 10:55 Hct, (40.0-50.0) 46.6 % 02/18/25, 10:55 Plt Count, (130-400) 219 10^3/uL 02/18/25, 10:55 Complete Metabolic Panel: Sodium, (136-145) 141 mmol/L 02/18/25, 10:55 Potassium, (3.5-5.1) 4.0 mmol/L 02/18/25, 10:55 Chloride, (98-107) 104 mmol/L 02/18/25, 10:55 Carbon Dioxide, (21.0-32.0) 27.2 mmol/L 02/18/25, 10:55 BUN, (7-18) 19 mg/dL H 02/18/25, 10:55 Creatinine, (0.70-1.30) 1.1 mg/dL 02/18/25, 10:55 Est GFR (CKD-EPI 2020), (mL/min/1.73m2) 71.77 02/18/25, 10:55 Calcium, (8.5-10.1) 9.2 mg/dL 02/18/25, 10:55 Albumin, (3.4-5.0) 4.0 g/dL 03/04/25, 07:54 Glucose, (74-106) 116 mg/dL H 02/18/25, 10:55 C-Reactive Protein, (<or=0.5) < 0.50 mg/dL 03/04/25, 07:54 Liver Function Panel: ALT, (16-63) 31 U/L 03/04/25, 07:54 AST, (15-37) 17 U/L 03/04/25, 07:54 Imaging and Studies Imaging and Studies Study information below may be from another EMR and interpreted by another provider. Please see original notes in EMR for more complete details. Stress Test Summary: STRESS TEST PATIENT NAME: Shankar Pina UNIT #: [id number] ORDERING PROVIDER: Saulo Perales DO PRIMARY CARE PROVIDER: SULLY BARAHONA NP DATE/TIME OF SERVICE: 09/06/21 ADMITTING PROVIDER: TATYANA HAY,TASHA RIVAS : 1955 APPROVED REPORT Exam: Exercise Treadmill Patient Location: Out-Patient Room/Bed: Stress Nurse: Shira Hartman RN Ordering Provider:SAULO LEMOSICK, Contact Number: [phone] BMI: 29.28 Baseline Rhythm: Sinus Rhythm Indications: exertional dyspnea Medical History Medical History: Polymyalgia Rheumatica, HLD Cardiac Medications: Omeprazole Allergies: NKA Cardiac Risk Factors: Family history, former smoker, HLD Previous Cardiac Procedures: None Pretest Chest Pain Characteristics: None Exercise History: Indeterminate Physical Disabilities: None Lung Sounds: clear Heart Sounds: regular Stress Test Details Test: Exercise stress testing was performed using a Topher protocol. Rest Stress HR Resting HR Supine: 61 bpmMax Heart Rate (APMHR): 152 bpm Resting HR Standin bpmTarget HR (85% APMHR): 129 bpm Max HR Achieved: 162 bpm % of APMHR: 106 Recovery HR: 78 bpm HR response to stress: Normal HR response to stress BP Resting BP Supine: 120/78 mmHg Resting BP Standin/70 mmHg Max BP: 170/80 mmHg Recovery BP: 128/74 mmHg BP response to stress: Normal blood pressure response to stress. ECG Resting ECG: Sinus Rhythm Ectopy: None Stress ECG: Sinus Tachycardia ST Change: None Arrhythmia: None Recovery ECG: Sinus Rhythm Recovery ST Change: None Recovery Arrhythmia: Rare PVC Clinical Reason for Termination: Fatigue Stress Symptoms: Dyspnea, General Fatigue Exercise duration: 10 min47 sec Highest Stage Reached: Stage 4: 4.2 mph at 16% grade. Exercise capacity: 13.08 METs Angina Score: None Baltazar Treadmill Score: 9.8 Rate Pressure Product: 64357 Stress ECG Conclusion 1. The resting electrocardiogram showed right axis deviation, poor R wave progression 2. Patient exercised on the Topher protocol and completed a workload of 13.08 METS, stopping due to fatigue 3. Normal heart rate and blood pressure response to exercise. Patient achieved greater than 100% of predicted heart rate for age 4. There was no electrocardiographic evidence of myocardial ischemia 5. Rare PVCs were seen Balatzar Treadmill Score is 9.8 which is Low risk. Stress Test Summary STAGETime (mins)Speed (mph)Grade (%)[id number] Dkiixe44088/78SP02 96% Mhygoedk50806/70SP02 97% 131.13891970/70SP02 93%4.6 262.169306884/70SP02 95%7 393.730400JG80 95%10.2 [id number] 1 min zebuceuy080308/74 3 min pgfuqfkr86892/80 6 min hbbtvxfv51458/74SP02 98% Dictated by: TASHA JOE MD Dictated:: 09/06/21 0935 <Electronically signed by Tasha Joe M.D. in [place]> 09/06/2145 Transcribed Date: Transcribed Time: By: OLIVIA This is privileged, confidential information, intended only for the provider named. Any use or distribution by any person other than this provider is strictly prohibited. If you receive this report in error, please notify us immediately at [phone] and return the original report to us at the address above. Thank you. Anesthesia Assessment and Plan Anesthesia History Personal History: No History of Anesthesia Complications Family History: No Family History of Anesthesia Complications Exercise Tolerance Exercise Tolerance: Metabolic Equivalents>4 Pertinent Negatives Pertinent Negatives: No Symptoms of GERD Cardiac & Pulmonary Exam Cardiac Exam: Normal S1/S2 Heart Sounds Pulmonary Exam: Clear Bilateral Breath Sounds Implantable Cardiac Device Does patient have a Pacemaker or an ICD?: No Airway Exam Known Difficult Airway: No Mallampati Class: 2 Mouth Opening: Normal (> 3cm) Thyromental Distance: Greater than 3 cm Neck Range of Motion: Full ROM Neck Circumference: Normal Teeth Condition: Normal Dentition ASA Classification ASA Score: ASA 2 Emergency Case?: No NPO Status NPO Status: NPO Clears >2 hours, Solids >8 hours Anesthesia Plan Resuscitation Status: Full Code Anesthesia Technique: General Anesthesia Airway Planned: Natural Airway Monitors Used: Standard Monitors
--- NOTE | 2025-03-16 09:31 | STOM_PTH ---
PATIENT: Shankar Pina LOC: [facility] U#:[id number] AGE/SX: 69/M ROOM: RE03/16/[address]: Kalyani Corley MD : 1955 BED: DIS: 03/16/2025 SPEC #: [id number] RECD: 03/16/25 12:02 STATUS: ADAN MOLINA #: [id number] JENNIE: 03/16/25 09:[address]: Kalyani Corley DEPT: Surgical Specimen RECD BY: Jennifer Schmidt ENTERED: 03/16/25 12:02 SP TYPE: STOMACH OTHR DR: Edgar Comer, RISA Tissues: 1 - STOMACH BIOPSY Procedures: GROSS AND MICRO LEVEL 4 Comments: [id number]
--- NOTE | 2025-03-16 09:33 | W.PM.DSUDISC ---
Date of service: 03/16/25 Discharge Plan Disposition Patient Disposition: Home Condition: Stable Discharge Details Attending Provider: Kalyani Corley Primary Care Provider: Edgar Comer Recommendations for Follow Up Recommended tests to be ordered by follow up provider: EGD assessment for cause of nausea and assessment of reflux Home Meds and New Rx's Prescriptions: Continued ginkgo biloba-Panax ginseng rt 60-100 mg capsule 1 cap PO DAILY turmeric root extract 500 mg capsule 500 mg PO DAILY MigreLief 200-180-50 mg tablet 1 tab PO DAILY ondansetron 4 mg tablet,disintegrating 4 mg PO Q8H PRN (Reason: nausea and vomiting) Qty: 60 0RF Benefiber Advanced 1 billion cell- 4 gram powder in packet 1 packet PO DIRECTED cyanocobalamin (vitamin B-12) [Vitamin B-12] 1,000 MCG tablet extended release 1,000 mcg PO DAILY atorvastatin 10 mg tablet 10 mg PO QHS Qty: 90 3RF Discharge Instructions Additional Instructions: EGD today shows very mild irritation of the bottom of the stomach. Nothing significant and nothing that would require you to resume your omeprazole as long as your reflux symptoms are not active or severe. Your esophagus looks healthy. I do not see hiatal hernia. Ok with me if you stay off omeprazole. If acid symptoms flare up we can try a new medication called pantoprazole, let me know if you need. Lets see what your gallbladder testing shows. I suspect we might find our answers to your nausea there. Stand Alone Forms: Portal Information Discharge Orders Discharge Orders: Discharge Order (Routine); Ordered 03/16/25 Ordered By: Kalyani Corley DS: Diagnosis Discharge Diagnosis (1) Mild chronic gastritis: Status: Acute (2) Chronic nausea: Status: Acute (3) GERD (gastroesophageal reflux disease):
[2025-03-16 09:35] VITALS: BP 115/77; PULSE 63; RESP 16; TEMP 36.3; O2SAT 96
--- NOTE | 2025-03-16 09:42 | W.PM.ENDDOP ---
Date of service: 01/01/25 Time of Service: 09:42 Endoscopy Report DATE OF PROCEDURE: 03/16/25 PRE-OP DIAGNOSIS: chronic nausea, GERD, epigastric pain POST-OP DIAGNOSIS: same (mild chronic gastritis) PROCEDURE: EGD with biopsy SURGEON: Kalyani Corley ANESTHESIA TYPE: General:No Airway ESTIMATED BLOOD LOSS: 2 PATHOLOGY: other (1. antrum biopsy) COMPLICATIONS: None DISPOSITION: same day INDICATIONS: Evaluation of upper digestive system for nausea and epigastric pain source/cause PROCEDURE DESCRIPTION: Lubricated endoscope was passed through a bite block into the second portion of the duodenum. The endoscope was withdrawn and the duodenum stomach and esophageal mucosa examined. The duodenum appeared normal. There is no inflammation or ulceration or erosion. The antrum appears mildly inflamed with erythematous streaks. The fundus appears normal. The cardia appears normal. The endoscope was retroflexed and there is no evidence of hiatal hernia. GE junction is at 37cm from the incisors. The distal esophagus is normal without ulceration, varices or candidiasis. The Z-line is regular and there is no evidence of Lynch's esophagus. Remainder of the esophagus appears normal Cold forceps biopsies obtained from the antrum for microscopic evaluation for H. pylori. The upper digestive system was desufflated and the endoscope withdrawn. No complications. Assessment and plan: Nausea, chronic epigastric pain GERD mild chronic gastritis No severe esophagitis, hiatal hernia or peptic ulcer spectrum disease to make me feel he should resume omeprazole at this time. GERD symptoms can be managed expectantly and we will consider pantoprazole if they flare back up. Will follow up antrum biopsy to rule out H pylori. Proceed with gallbladder testing for evaluation of symptoms. Nothing on todays exam to explain the chronic nausea or pain in my opinion.
[2025-03-16 09:56] VITALS: BP 128/81; PULSE 57; RESP 16; TEMP 36.4; O2SAT 97
--- NOTE | 2025-03-16 10:08 | W.ANESPOSTOP ---
Postoperative Evaluation Date, Time and Location Date Performed: 03/16/25 Time Performed: 10:08 Patient Location: Day Surgery Unit Vital Signs Most Recent Imported Vital Signs: Most Recent Vital Signs Temp Pulse Resp BP Pulse Ox 36.3 C L 63 16 115/77 96 03/16/25 09:35 03/16/25 09:35 03/16/25 09:35 03/16/25 09:35 03/16/25 09:35 Pain Score Most Recent Pain Score: Most Recent Pain Score Pain Level 0 03/16/25 09:35 Assessment Mental Status: Awake (Alert & Oriented to Patient Baseline) Airway and Respiratory Function: Patent airway with normal (patient baseline) respiratory exam Cardiovascular Function: Hemodynamically Stable Hydration Status: Adequately Hydrated Nausea & Vomiting: No Nausea or Vomiting Pain: Pt. Denies Any Pain Peripheral Nerve Block: Patient did not receive a nerve block
== END 2025-03-16 10:15 | disposition home or self-care (01) ==
PROVIDERS: PCP Nurse Practitioner Family; Visit Provider Surgery
PROC: 0DJ68ZZ Inspection of Stomach, Via Natural or Artificial Opening Endoscopic (ICD-10-PCS; CPT 43235; principal; 2025-03-16 09:00)
DX: K29.50 Unspecified chronic gastritis without bleeding (principal); R11.0 Nausea; K21.9 Gastro-esophageal reflux disease without esophagitis; R10.9 Unspecified abdominal pain; K31.89 Other diseases of stomach and duodenum
CPT/HCPCS: 43239; 88305; J2003; J2704

== ENCOUNTER → 2025-04-01 01:45 | Outpatient (CLI) | payer MEDICARE, SELFPAY ==
--- NOTE | 2025-04-01 10:03 | DI.NM_ITS ---
Exam(s) NM HEPATOBILIARY CCK GRP EXAM: NC HEPATOBILIARY CCK GRP CLINICAL HISTORY: chronic nausea,r11.2. TECHNIQUE: Injected dose: 5 mCi Tc-99 mebrofenin Initial dynamic images: 70 minutes Post-Gallbladder fillin.2 mcg of CCK was administered according to protocol. Addition images: According to protocol. COMPARISON: NM HEPATOBILIARY CCK from 07/09/2013 US US ABDOMEN LIMITED from 04/01/2025 FINDINGS: Normal hepatic transit time. Prompt excretion into the small bowel. Prompt excretion into the gallbladder. The gallbladder ejection fraction is within normal limits at 80 percent. IMPRESSION: 1. Unremarkable examination. There is a normal gallbladder ejection fraction. SNM guidelines: Gallbladder visualization should be present by 3 hours. Delayed slrlokm-ol-imfkh transit beyond 60 min raises the suspicion for partial common bile duct (CBD) obstruction. Gallbladder ejection fraction <35% has a good correlation with acalculous disease (i.e., chronic acalculous cholecystitis, cystic duct syndrome, sphincter of Oddi disease).
--- NOTE | 2025-04-01 10:03 | DI.US_ITS ---
Exam(s) US ABDOMEN LIMITED EXAM: US ABDOMEN LIMITED CLINICAL HISTORY: abd pain and nausea,r10.9 TECHNIQUE: Ultrasound abdomen performed using standard protocol. COMPARISON: US ABDOMEN ULTRASOUND (P) from 04/23/2017 CT ABD PELVIS WITH CONTRAST from 06/05/2017 US US ABDOMEN from 02/10/2021 FINDINGS: PANCREAS: Normal where visualized. LIVER: There is diffuse increased echogenicity of the liver consistent with fatty infiltration. Hepatopetal flow in the Portal Vein. The liver measures in 13.6 cm length. No evidence of a hepatic mass. GALLBLADDER: No evidence of cholelithiasis. No evidence of wall thickening. No pericholecystic fluid identified. BILIARY SYSTEM: Common bile duct measures < 7 mm. No intrahepatic biliary ductal dilation. TORREZ'S SIGN: Negative. RIGHT KIDNEY: Kidney is normal in size. No evidence of renal calculi. No evidence of hydronephrosis. There is a simple right renal cyst again seen. No follow-up is recommended. ASCITES: None seen. IMPRESSION: Hepatic steatosis. DATA REPOSITORY:
[2025-04-01] MEDS: Sincalide 5 MCG VIAL 1.2 MCG IJ (11:33)
[2025-04-01] MEDS: Water,Injection,Sterile 10 ML VIAL IJ (11:34)
== END ==
LOC: DI 01:45
PROVIDERS: PCP Nurse Practitioner Family; Visit Provider Surgery
DX: K76.0 Fatty (change of) liver, not elsewhere classified (principal); R10.9 Unspecified abdominal pain
CPT/HCPCS: 78227; J2805; 76705

== ENCOUNTER 2025-04-06 04:14 | Outpatient (CLI) | payer MEDICARE, SELFPAY ==
[2025-04-06 14:28] LABS: Ferritin 396 ng/mL (11-307)
== END 2025-04-06 04:15 | disposition home or self-care (01) ==
LOC: LOS 04:14
PROVIDERS: PCP Nurse Practitioner Family; Visit Provider Nurse Practitioner Family
DX: R79.89 Other specified abnormal findings of blood chemistry (principal)
CPT/HCPCS: 36415; 82728

== ENCOUNTER → 2025-04-08 09:53 | Outpatient (BNVA) | payer MEDICARE, SELFPAY | PROVIDERS: PCP Nurse Practitioner Family; Referring Provider Nurse Practitioner Family; Visit Provider Surgery | DX: R11.0 Nausea (principal); R10.13 Epigastric pain; K21.9 Gastro-esophageal reflux disease without esophagitis | CPT/HCPCS: 99214 ==

== ENCOUNTER → 2025-04-24 00:17 | Outpatient (CLI) | payer MEDICARE, SELFPAY ==
--- NOTE | 2025-04-24 07:45 | DI.CT_ITS ---
Exam(s) CT ABDOMEN PELVIS W EXAM: CT ABDOMEN PELVIS W CLINICAL HISTORY: Chronic epigastric pain,nausea,work up negativ,r10.13. TECHNIQUE: Imaging Protocol: Axial computed tomography images with coronal and sagittal reformatted images were created and reviewed CONTRAST MATERIAL: Intravenous: Omnipaque 350 Contrast volume:75 ml Oral: yes COMPARISON: CT ABD PELVIS WITH CONTRAST from 06/05/2017 FINDINGS: ABDOMEN and PELVIS: Lung Bases: No acute findings. Liver: Normal density. No suspicious mass. Gallbladder and biliary tract: No radiodense calculus. No wall thickening or pericholecystic fluid. No biliary dilation. Pancreas: Normal density. No abnormal calcifications or inflammatory process. No evidence of mass. Spleen: Normal. Kidneys: Normal size, contour and axis. No radiodense stones. No obstructive uropathy. Right parapelvic cyst. No suspicious masses seen. Adrenal glands: No masses seen. Vasculature: Abdominal aorta non-dilated. Soft tissues: Unremarkable. Bladder: No gross wall thickening. No calculi.No focal mass. Bowel: The stomach and small bowel are unremarkable. Normal small bowel fold pattern. No obstruction. No bowel wall thickening. Appendix normal.Mild diverticulosis. No evidence of diverticulitis. Normal quantity of stool. Peritoneal cavity: No ascites. No focal collection. No mesenteric inflammatory response. No free air. Bones: Degenerative disc changes greatest at L3-4 and L4-5. Reproductive organs: Mildly enlarged prostate. Lymph nodes: No pathologically enlarged lymph nodes. IMPRESSION:: No acute abnormality in the abdomen or pelvis. RADIATION DOSE DELIVERED: Total DLP DATA REPOSITORY: All CT scans at this facility are submitted to the National Radiology Data Registry (NRDR) Dose Index Registry (DIR) with the [employer] (ACR). RADIATION OPTIMIZATION: All CT scans at this facility use at least one of these dose optimization techniques: automated exposure control; mA and/or kV adjustment per patient size (includes targeted exams where dose is matched to clinical indication); or iterative reconstruction.
[2025-04-24 13:48] LABS: Ferritin 348 ng/mL (11-307)
[2025-04-24] MEDS: Barium Sulfate 2% W/V-Creamy Vanilla Smoothie 450 ML BTL PO ×2 (14:27→14:28)
[2025-04-24] MEDS: Omnipaque 350 MG/ML 500 ML BTL-Imaging package IJ (14:42)
[2025-04-24] MEDS: Normal Saline - Diluent 50 ML VIAL IJ (14:43)
[2025-04-24] MEDS: Normal Saline Flush 10 ML SYR IVP (14:43)
== END ==
LOC: DI 00:17
PROVIDERS: PCP Nurse Practitioner Family; Visit Provider Surgery
DX: R79.89 Other specified abnormal findings of blood chemistry (principal); R11.0 Nausea; R10.13 Epigastric pain; R10.9 Unspecified abdominal pain
CPT/HCPCS: 74177; 82565; 82728